=== PATIENT | female | born 1970 | race Caucasian/White ===

== ENCOUNTER 2017-07-31 19:57 | Emergency (ER) | payer BC ==
[2017-07-31 20:49] LABS: Urine Blood NEGATIVE (NEG); Urine Glucose NEGATIVE (NEG); Urine Protein NEGATIVE (NEG); Urine Specific Gravity 1.015 (1.005-1.030)
[2017-07-31] MEDS ORDERED: MAGNE/ALUM HYDROXD 30 ML UCUP ONE (20:57)
[2017-07-31] MEDS ORDERED: NA CHLORIDE 0.9% 1,000 ML ONE (20:58)
[2017-07-31] MEDS ORDERED: MORPHINE 4 MG/ML SYR ONE (20:58)
[2017-07-31] MEDS ORDERED: PANTOPRAZOLE 40 MG INJ ONE (20:58)
[2017-07-31] MEDS ORDERED: LIDOCAINE VISCOUS 2% SOLN 15 ML UDC ONE (20:58)
[2017-07-31] MEDS ORDERED: ONDANSETRON 4 MG/2 ML VIAL ONE (20:59)
[2017-07-31 21:13] LABS: Absolute Lymphocytes (CBC) 1.8 K/uL (0.7-4.9); Absolute Monocytes 0.6 K/uL (0.1-1.3); Absolute Neutrophil 8.9 K/uL (1.8-8.0); Basophils % 0.7 % (0-1.3); Hematocrit 39.3 % (36.0-45.0); Lymphocytes % 14.6 % (15.3-44.8); MCH 27.6 pg (27.0-35.0); MCV 83.7 fL (80-100); MPV 8.3 fL (7.6-11.3); Monocytes % 5.2 % (3.3-12.3)
[2017-07-31 21:23] LABS: Urine RBC <5 /HPF (NONE SEEN)
[2017-07-31 21:24] LABS: Urine Bacteria NONE SEEN /HPF (<20); Urine Culture Reflex Order NOT NEEDED
[2017-07-31 21:30] LABS: Albumin 3.8 g/dL (3.2-5.5); Bilirubin Direct 0.1 mg/dL (0-0.2); Bilirubin Total 0.5 mg/dL (0.3-1.2); Protein, Total 7.5 g/dL (6.0-8.3)
[2017-07-31 21:41] LABS: Potassium 4.4 mEq/L (3.6-5.0)
[2017-08-01] MEDS ORDERED: MORPHINE 4 MG/ML SYR ONE (00:58)
--- NOTE | 2017-08-01 00:58 | EDPHYS ---
Physician Documentation [facility] Name: Yahaira Caballero Age: 47 yrs Sex: Female : 1970 Arrival Date: 07/31/2017 Time: 20:04 Bed 28 Private MD: Faisal Munguia R ED Physician Benito Driscoll HPI: 07/31 20:40 This 47 yrs old Female presents to ER via Ambulatory with complaints of pkl Abdominal Pain. 20:40 The patient presents with abdominal pain in the epigastric area. Onset: The pkl symptoms/episode began/occurred 2 day(s) ago, and became worse today. The symptoms do not radiate. Patient said pain is worse when swallowing. Historical: - Allergies: 20:09 Codeine; la1 20:09 shrimp; la1 20:09 Tape; la1 20:09 Iodinated Contrast Media - IV Dye; la1 - PMHx: 20:09 Depression; la1 - PSHx: 20:09 Cholecystectomy; Tubal ligation; lap band; tummy tuck; la1 - Immunization history:: Adult Immunizations up to date. - Social history:: Smoking status: Patient/guardian denies using tobacco. ROS: 20:40 Eyes: Negative for injury, pain, redness, and discharge, ENT: Negative for injury, pkl pain, and discharge, Neck: Negative for injury, pain, and swelling, Cardiovascular: Negative for chest pain, palpitations, and edema, Respiratory: Negative for shortness of breath, cough, wheezing, and pleuritic chest pain. 20:40 Abdomen/GI: Positive for abdominal pain, of the epigastric area. 20:40 Back: Negative for acute changes. 20:40 : Negative for urinary symptoms. 20:40 MS/extremity: Negative for acute changes. 20:40 Skin: Negative for rash. 20:40 Neuro: Negative for altered mental status. Exam: 20:40 Head/Face: Normocephalic, atraumatic. Eyes: Pupils equal round and reactive to light, pkl extra-ocular motions intact. Lids and lashes normal. Conjunctiva and sclera are non-icteric and not injected. Cornea within normal limits. Periorbital areas with no swelling, redness, or edema. ENT: Nares patent. No nasal discharge, no septal abnormalities noted. Tympanic membranes are normal and external auditory canals are clear. Oropharynx with no redness, swelling, or masses, exudates, or evidence of obstruction, uvula midline. Mucous membranes moist. Neck: Trachea midline, no thyromegaly or masses palpated, and no cervical lymphadenopathy. Supple, full range of motion without nuchal rigidity, or vertebral point tenderness. No Meningismus. Chest/axilla: Normal chest wall appearance and motion. Nontender with no deformity. No lesions are appreciated. Cardiovascular: Regular rate and rhythm with a normal S1 and S2. No gallops, murmurs, or rubs. Normal PMI, no JVD. No pulse deficits. Respiratory: Lungs have equal breath sounds bilaterally, clear to auscultation and percussion. No rales, rhonchi or wheezes noted. No increased work of breathing, no retractions or nasal flaring. 20:40 Abdomen/GI: Bowel sounds: normal, Palpation: soft, mild abdominal tenderness, in the epigastric area. 20:40 Back: Exam negative for acute changes. 20:40 : Exam negative for acute changes. 20:40 Musculoskeletal/extremity: Exam is negative for acute changes. 20:40 Skin: Exam negative for rash. 20:40 Neuro: Orientation: is normal, Mentation: is normal, Cranial nerves: grossly normal, Motor: is normal. Vital Signs: 20:09 BP 112 / 83; Pulse 74; Resp 16; Temp 98.3(TE); Pulse Ox 100% on R/A; Weight 82.55 kg; la1 Height 5 ft. 5 in. (165.10 cm); 21:16 BP 102 / 68; Pulse 71; Resp 18; Pulse Ox 100% on R/A; Pain 6/10; ed1 22:22 BP 129 / 96; Pulse 68; Resp 16; Pulse Ox 100% on R/A; Pain 6/10; ed1 23:34 BP 123 / 85; Pulse 74; Resp 20; Pulse Ox 100% on R/A; Pain 5/10; ed1 08/01 00:36 BP 127 / 89; Pulse 72; Resp 16; Pulse Ox 100% on R/A; Pain 6/10; ed1 07/31 20:09 Body Mass Index 30.29 (82.55 kg, 165.10 cm) la MDM: 07/31 20:11 Patient medically screened. pkl 23:24 Data reviewed: vital signs, nurses notes. pkl 08/01 00:55 Data reviewed: lab test result(s), EKG, radiologic studies, CT scan. pkl 07/31 20:31 Order name: Urine Dipstick--Ancillary (enter results); Complete Time: 20:54 mw2 07/31 20:31 Order name: Urine --Ancillary (enter results); Complete Time: 20:54 [facility] 07/31 20:39 Order name: Amylase, Serum; Complete Time: 21:44 pkl 07/31 20:39 Order name: Basic Metabolic Panel; Complete Time: 21:44 pkl 07/31 20:39 Order name: CBC with Diff; Complete Time: 21:44 pkl 07/31 20:39 Order name: Creatinine for Radiology; Complete Time: 21:44 pkl 07/31 20:39 Order name: Hepatic Function; Complete Time: 21:44 pkl 07/31 20:39 Order name: Lipase; Complete Time: 21:44 pkl 07/31 20:39 Order name: Urine Microscopic Only; Complete Time: 21:44 pkl 07/31 21:53 Order name: Abdomen [facility] 07/31 20:39 Order name: IV Saline Lock; Complete Time: 21:01 pkl 07/31 20:39 Order name: Labs collected and sent; Complete Time: 21:01 pkl 07/31 20:39 Order name: Urine Dipstick-Ancillary (obtain specimen); Complete Time: 20:40 pkl 07/31 20:39 Order name: EKG; Complete Time: 20:39 pkl Administered Medications: 07/31 21:05 Drug: ProTONIX 40 mg Route: IVP; Site: left forearm; 08/01 00:31 Follow up: Response: No adverse reaction; No change in condition ed1 07/31 21:06 Drug: NS 0.9% 1000 ml Route: IV; Rate: 125 ml/hr; Site: left forearm; 08/01 01:06 Follow up: IV Status: Order to discontinue infusion; IV Intake: 500ml ed 07/31 21:06 Drug: morphine 4 mg Route: IVP; Site: left forearm; 08/01 00:31 Follow up: Response: No adverse reaction; No change in condition ed1 07/31 21:06 Drug: Zofran 4 mg Route: IVP; Site: left forearm; 08/01 00:31 Follow up: Response: No adverse reaction; No change in condition ed1 07/31 21:16 Drug: GI Cocktail without - (Maalox Suspension 30 ml, Lidocaine Liquid 2 % 15 ed1 ml) Route: PO; 08/01 00:31 Follow up: Response: No adverse reaction; No change in condition ed1 01:00 Drug: morphine 4 mg Route: IVP; Site: left forearm; ed1 01:05 Follow up: Response: Medication administered at discharge. ed1 Disposition: 08/01/17 00:57 Discharged to Home. Impression: Epigastric pain. S/P Lap band gastroplasty. - Condition is Stable. - Prescriptions for Ultram 50 mg Oral Tablet - take 1 tablet by ORAL route every 8 hours As needed; 20 tablet. Cipro 500 mg Oral Tablet - take 1 tablet by ORAL route every 12 hours for 7 days; 14 tablet. Protonix 40 mg Oral Tablet, Delayed Release (E.C.) - take 1 tablet by ORAL route once daily; 15 tablet. - Medication Reconciliation Form, Thank You Letter, Antibiotic Education, Prescription Opioid Use form. - Follow up: Ba Aguero MD; When: 1 - 2 days; Reason: Re-evaluation by your physician. - Problem is new. - Symptoms have improved. Signatures: Dispatcher [employer] [facility] Benito Driscoll MD MD pkClaire Farley RN RN Steve, Naty, HOME MISSION WORKER HOME MISSION WORKER ed1 Jaylen De Leon RN RN la1 Corrections: (The following items were deleted from the chart) 07/31 21:53 21:48 Abdomen Pelvis W Con+CT.RAD.BRZ ordered. [facility] 08/01 01:05 00:57 08/01/2017 00:57 Discharged to Home. Impression: Epigastric pain. S/P Lap band ed1 gastroplasty. Condition is Stable. Forms are Medication Reconciliation Form, Thank You Letter, Antibiotic Education, Prescription Opioid Use. Follow up: Ba Aguero; When: 1 - 2 days; Reason: Re-evaluation by your physician. Problem is new. Symptoms have improved. pkl
--- NOTE | 2017-08-01 00:58 | ER ---
Nurse's Notes [facility] Name: Yahaira Caballero Age: 47 yrs Sex: Female : 1970 Arrival Date: 07/31/2017 Time: 20:04 Bed 28 Private MD: Faisal Munguia R Diagnosis: Epigastric pain. S/P Lap band gastroplasty Presentation: 07/31 20:07 Presenting complaint: Patient states: I have been having abd pain for the last few days la1 that is made worse by swallowing. Transition of care: patient was not received from another setting of care. Onset of symptoms was July 31, 2017. Initial Sepsis Screen: Does the patient meet any 2 criteria? No. Patient's initial sepsis screen is negative. Does the patient have a suspected source of infection? No. Patient's initial sepsis screen is negative. Care prior to arrival: None. 20:07 Method Of Arrival: Ambulatory la1 20:07 Acuity: AUBRIE 3 la1 Historical: - Allergies: 20:09 Codeine; la1 20:09 shrimp; la1 20:09 Tape; la1 20:09 Iodinated Contrast Media - IV Dye; la1 - PMHx: 20:09 Depression; la1 - PSHx: 20:09 Cholecystectomy; Tubal ligation; lap band; tummy tuck; la1 - Immunization history:: Adult Immunizations up to date. - Social history:: Smoking status: Patient/guardian denies using tobacco. Screenin:16 Abuse screen: Denies threats or abuse. Denies injuries from another. Nutritional ed1 screening: No deficits noted. Tuberculosis screening: No symptoms or risk factors identified. Fall Risk None identified. Assessment: 20:16 General: Appears in no apparent distress. Behavior is calm, cooperative. Pain: ed1 Complains of pain in abdomen Pain does not radiate. Pain currently is 6 out of 10 on a pain scale. Quality of pain is described as aching, Pain began 2-3 days ago. Is continuous. Neuro: Level of Consciousness is awake, alert, obeys commands, Oriented to person, place, time, situation. Cardiovascular: Denies chest pain, Heart tones S1 S2 present. Respiratory: Airway is patent Respiratory effort is even, unlabored, Respiratory pattern is regular, symmetrical, Breath sounds are clear bilaterally. GI: Abdomen is non-distended, Bowel sounds present X 4 quads. Abd is soft and non tender X 4 quads. Reports lower abdominal pain, upper abdominal pain, nausea. : No signs and/or symptoms were reported regarding the genitourinary system. EENT: No signs and/or symptoms were reported regarding the EENT system. Derm: Skin is pink, warm \\T\\ dry. Musculoskeletal: Circulation, motion, and sensation intact. 20:20 Reassessment: I agree with above assessment. 21:16 Reassessment: Patient appears in no apparent distress at this time. No changes from ed1 previously documented assessment. Patient and/or family updated on plan of care and expected duration. Pain level reassessed. Patient is alert, oriented x 3, equal unlabored respirations, skin warm/dry/pink. Patient states symptoms have not improved. 22:22 Reassessment: Patient appears in no apparent distress at this time. No changes from ed1 previously documented assessment. Patient and/or family updated on plan of care and expected duration. Pain level reassessed. Patient is alert, oriented x 3, equal unlabored respirations, skin warm/dry/pink. 22:53 Reassessment: Pt finished oral contrast for CT. Fabrizio in CT notified. ed1 23:34 Reassessment: Patient appears in no apparent distress at this time. No changes from ed1 previously documented assessment. Patient and/or family updated on plan of care and expected duration. Pain level reassessed. Patient is alert, oriented x 3, equal unlabored respirations, skin warm/dry/pink. 08/01 00:36 Reassessment: Patient appears in no apparent distress at this time. Patient and/or ed1 family updated on plan of care and expected duration. Pain level reassessed. Patient is alert, oriented x 3, equal unlabored respirations, skin warm/dry/pink. Pt reports "spasm" feeling to left and right upper quadrants. Vital Signs: 07/31 20:09 BP 112 / 83; Pulse 74; Resp 16; Temp 98.3(TE); Pulse Ox 100% on R/A; Weight 82.55 kg; la1 Height 5 ft. 5 in. (165.10 cm); 21:16 BP 102 / 68; Pulse 71; Resp 18; Pulse Ox 100% on R/A; Pain 6/10; ed1 22:22 BP 129 / 96; Pulse 68; Resp 16; Pulse Ox 100% on R/A; Pain 6/10; ed1 23:34 BP 123 / 85; Pulse 74; Resp 20; Pulse Ox 100% on R/A; Pain 5/10; ed1 08/01 00:36 BP 127 / 89; Pulse 72; Resp 16; Pulse Ox 100% on R/A; Pain 6/10; ed1 07/31 20:09 Body Mass Index 30.29 (82.55 kg, 165.10 cm) nd1 ED Course: 07/31 20:04 Patient arrived in ED. al2 20:04 Faisal Munguia MD is Private Physician. al2 20:08 Triage completed. la1 20:10 Benito Driscoll MD is Attending Physician. pkl 20:10 Arm band placed on left wrist. la1 20:15 Naty Wilson LVN is Primary Nurse. ed1 20:16 Patient has correct armband on for positive identification. Placed in gown. Bed in low ed1 position. Call light in reach. Adult w/ patient. 21:01 Inserted saline lock: 22 gauge in left forearm, using aseptic technique. Blood mb3 collected. 21:12 EKG done, by ED staff, reviewed by Benito Driscoll MD. dh3 22:[address] Scan. ed1 22:[address] Scan. ed1 23:[address] via wheelchair. nj 23:32 CT completed. Patient tolerated procedure well. nj 23:34 Abdomen In Process Unspecified. EDMS 23:[address] Scan. ed1 08/01 00:56 Ba Aguero MD is Referral Physician. pkl 01:04 No provider procedures requiring assistance completed. IV discontinued, intact, ed1 bleeding controlled, No redness/swelling at site. Pressure dressing applied. Administered Medications: 07/31 21:05 Drug: ProTONIX 40 mg Route: IVP; Site: left forearm; 08/01 00:31 Follow up: Response: No adverse reaction; No change in condition ed1 07/31 21:06 Drug: NS 0.9% 1000 ml Route: IV; Rate: 125 ml/hr; Site: left forearm; 08/01 01:06 Follow up: IV Status: Order to discontinue infusion; IV Intake: 500ml ed1 07/31 21:06 Drug: morphine 4 mg Route: IVP; Site: left forearm; 08/01 00:31 Follow up: Response: No adverse reaction; No change in condition ed1 07/31 21:06 Drug: Zofran 4 mg Route: IVP; Site: left forearm; 08/01 00:31 Follow up: Response: No adverse reaction; No change in condition ed1 07/31 21:16 Drug: GI Cocktail without - (Maalox Suspension 30 ml, Lidocaine Liquid 2 % 15 ed1 ml) Route: PO; 08/01 00:31 Follow up: Response: No adverse reaction; No change in condition ed1 01:00 Drug: morphine 4 mg Route: IVP; Site: left forearm; ed1 01:05 Follow up: Response: Medication administered at discharge. ed1 Intake: 01:06 IV: 500ml; Total: 500ml. ed1 Outcome: 00:57 Discharge ordered by . arslan 01:04 Discharged to home ambulatory, with family. ed1 01:04 Condition: good 01:04 Discharge instructions given to patient, Instructed on discharge instructions, follow up and referral plans. medication usage, Demonstrated understanding of instructions, follow-up care, medications, Prescriptions given X 3. 01:05 Patient left the ED. ed1 Signatures: Dispatcher [employer] EDMS Benito Driscoll MD MD pkl Chretien, Felicia RN RN fc Naty Wilson LVN [employer] BRIDGE OPERATOR HELPER ed1 Jaylen De Leon RN RN [email or web address] Gregg Romero Deanna [facility] Marta Rowe paSantiago Mcbride, RN RN mb3
--- NOTE | 2017-08-01 07:59 | EKG ---
Test Date: 2017-07-31 Test Time: 21:06:47 Telephone Collector: MAXIME MEASUREMENT RESULTS: Intervals: Rate: 68 OK: 146 QRSD: 84 QT: 402 QTc: 427 [place]: P: 43 OK: 146 QRS: 10 T: 45 INTERPRETIVE STATEMENTS: Normal sinus rhythm Low voltage QRS Borderline ECG No previous ECG available for comparison Electronically Signed On 08-01-17 07:58:43 CDT by Kenny Nicole
--- NOTE | 2017-08-01 09:34 | RAD REPORT ---
EXAM DESCRIPTION: CT - Abdomen Pelvis Wo Contrast - 08/01/2017 6:01 am CLINICAL HISTORY: Abdominal pain COMPARISON: None TECHNIQUE: Computed axial tomography of the abdomen and pelvis was obtained. IV contrast was not req uested. Oral contrast was given. Preliminary report was generated a virtual radiologic and reviewed prior to this dictation All CT scans are performed using dose optimization technique as appropriate and may include automated exposure control or mA/KV adjustment according to patient size. FINDINGS: The evaluation of solid organs, and vesselsis limited secondary to the lack of contrast a dministration. The liver, spleen, pancreas, adrenals and kidneys appear grossly normal. The appendix is normal. There is no evidence of diverticulitis. A gastric band is in place. A small hiatal hernia is seen IMPRESSION: No acute abnormality is displayed.
== END 2017-08-01 01:05 | disposition home or self-care (01) ==
LOC: ER 19:57
DX: R10.13 Epigastric pain (principal); Z98.84 Bariatric surgery status; Z88.5 Allergy status to narcotic agent; Z91.013 Allergy to seafood; Z91.041 Radiographic dye allergy status; Z91.048 Other nonmedicinal substance allergy status
CPT/HCPCS: 36415; 74176; 80048; 80076; 81003; 81015; 81025; 82150; 83690; 85025; 93005; 96361; 96374; 96375; 99284; C9113; J2405; J7030